=== PATIENT | female | born 1980 | race Caucasian/White ===

== ENCOUNTER 2018-10-24 22:02 | Emergency (ER) | payer OTHER ==
[~2018-10-24] VITALS: Ht 152.4 cm; Wt 58.1 kg
[2018-10-25] MEDS ORDERED: OSEL75CA PO (00:37)
[2018-10-25] MEDS ORDERED: ZYNCOF 20-400120 ML PO (00:37)
[2018-10-25] MEDS ORDERED: CONEX TABLET1 EACH PO (00:37)
== END 2018-10-25 00:59 ==
LOC: ER 22:02
DX: B34.9 Viral infection, unspecified (principal)